=== PATIENT | male | born 1955 | race Caucasian/White ===

== ENCOUNTER 2025-07-31 12:29 | Emergency (ER) | payer MEDICARE, OTHER ==
[~2025-07-31] VITALS: Ht 175.3 cm; Wt 65.8 kg
[2025-07-31 12:36] VITALS: TEMP 98.2
[2025-07-31 14:59] VITALS: BP 134/70; O2SAT 97
== END 2025-07-31 14:59 | disposition home or self-care (01) ==
LOC: ER 12:35 → EDBD 12:35 → ER 14:59
DX: R40.0 Somnolence (principal); Z00.00 Encounter for general adult medical examination without abnormal findings